=== PATIENT | female | born 1985 | race Caucasian/White ===

== ENCOUNTER 2017-11-23 11:45 | Emergency (ER) | payer BC ==
[~2017-11-23] VITALS: Ht 167.6 cm; Wt 57.1 kg
[~2017-11-23 11:45] MED LIST: PRENATABS FA T1 EACH PO
== END 2017-11-23 13:11 | disposition home or self-care (01) ==
LOC: ED 11:45
DX: S00.03XA Contusion of scalp, initial encounter (principal); Z88.0 Allergy status to penicillin; Z91.040 Latex allergy status; Z88.5 Allergy status to narcotic agent; W22.8XXA Striking against or struck by other objects, initial encounter
CPT/HCPCS: 70450; 99284